=== PATIENT | male | born 1945 | race Two or more races ===

== ENCOUNTER → 2023-11-16 07:33 | Outpatient (REF) | payer MEDICARE, BC, SELFPAY | LOC: MRI 3T 07:33 | PROVIDERS: ATTENDING PHYSICIAN Specialist; FAMILY PHYSICIAN Internal Medicine | DX: R97.20 Elevated prostate specific antigen [PSA] (principal) | CPT/HCPCS: 72197; A9575 ==

== ENCOUNTER → 2024-07-16 09:50 | Outpatient (REF) | payer MEDICARE, BC, SELFPAY | LOC: MRI 3T 09:50 | PROVIDERS: ATTENDING PHYSICIAN Internal Medicine | DX: R20.8 Other disturbances of skin sensation (principal) | CPT/HCPCS: 70551 ==

== ENCOUNTER → 2024-07-22 13:41 | Outpatient (REF) | payer MEDICARE, BC, SELFPAY | LOC: MRI 3T 13:41 | PROVIDERS: ATTENDING PHYSICIAN Internal Medicine | DX: G50.8 Other disorders of trigeminal nerve (principal) | CPT/HCPCS: 70544 ==